=== PATIENT | female | born 1970 | race Caucasian/White ===

== ENCOUNTER → 2016-06-10 | Outpatient (CLI) | payer OTHER ==
--- NOTE | 2016-06-12 07:53 | MA ---
Screening Digital Mammogram With Tomosynthesis Clinical Indications: Routine screening. Technique: Standard digital cephalocaudal and tomosynthesis mediolateral oblique projections are obt ained. The digital images are processed by the [employer] computer aided detection system. Comparison: March 2013 Breast density: C; The breast tissue is heterogeneously dense, which could obscure detection of small masses. Findings: CAD was reviewed. No suspicious findings are identified. Impression: Negative mammogram. BI-RADS 1. Recommendation: Routine screening is recommended in one year, as long as physical examination is joel ign in this patient with moderately dense breast parenchyma. [facility] will send a result letter to the patient. Negative mammography should not preclude additional workup of a clinically suspicious finding. The patient's information is entered into a reminder system with a target due date for her next mammo gram.
== END ==
LOC: FIMAGING 13:33
DX: Z12.31 Encounter for screening mammogram for malignant neoplasm of breast (principal)
CPT/HCPCS: G0202

== ENCOUNTER → 2016-06-18 | Outpatient (CLI) | payer OTHER ==
--- NOTE | 2016-06-18 12:05 | US ---
Transabdominal and Endovaginal Pelvic Ultrasound Clinical History: 45-year-old female with a family history of ovarian cancer, presenting for screenin g evaluation. The patient is . ICD 10 Diagnostic Codes: Z01.419, N94.9, and Z80.41. TECHNIQUE: A curvilinear 5 MHz transducer was initially used to sonographically evaluate the pelvis, using a full urinary bladder as a window. To better assess the uterine architecture and the adnexal s tructures, endovaginal pelvic sonography was also performed. Color and spectral Doppler were used. Comparison: None. Findings: Transabdominal Pelvic Sonography: The uterus is normal in size, shape, and position, measuring 7.0 x 4.6 x 3.9 cm. The visualized aspects of the urinary bladder are normal. The right and left ovaries a re normal. Endovaginal Pelvic Sonography: The endometrium is homogeneous, and measures 6.5 mm. The right ovary measures 2.1 x 2.9 x 1.7 cm, and contains a 1.1 x 1.4 x 1.3 cm anechoic simple-appearing follicular c yst. Intraovarian vascular flow is documented, with a resistive index of 0.42. The left ovary measure s 1.3 x 2.3 x 1.2 cm, and contains some tiny anechoic follicles; intraovarian vascular flow is docume nted with a resistive index of 0.52. Benign-appearing nabothian cysts are noted at the level of the c ervix. There is no solid adnexal mass, nor is there any free fluid in the pelvic cul-de-sac. A trace amount of fluid is seen in the left adnexal region. Impression: Normal pelvic sonography.
== END ==
LOC: FIMAGING 10:17
PROVIDERS: ATTEND Physician Assistant Medical
DX: Z85.43 Personal history of malignant neoplasm of ovary (principal)